=== PATIENT | male | born 1995 | race Caucasian/White ===

== ENCOUNTER 2021-05-16 22:56 | Emergency (ER) | payer MEDICAID ==
[~2021-05-16] VITALS: Ht 165.1 cm; Wt 59.0 kg
[2021-05-16 23:02] VITALS: BP 116/61
== END 2021-05-17 02:09 | disposition left against medical advice (07) ==
LOC: ER 23:42
DX: M79.89 Other specified soft tissue disorders (principal); Z53.21 Procedure and treatment not carried out due to patient leaving prior to being seen by health care provider

== ENCOUNTER 2022-01-21 18:39 | Emergency (ER) | payer MEDICAID ==
[~2022-01-21] VITALS: Ht 160 cm; Wt 62.0 kg
[2022-01-21 18:49] VITALS: BP 117/63
== END 2022-01-21 22:46 | disposition left against medical advice (07) ==
LOC: ER 18:39
DX: Z53.21 Procedure and treatment not carried out due to patient leaving prior to being seen by health care provider (principal)

== ENCOUNTER 2022-05-22 17:02 | Emergency (ER) | payer MEDICAID ==
[~2022-05-22] VITALS: Ht 170.2 cm; Wt 64.0 kg
[2022-05-22] MEDS ORDERED: OXYCODONE HCL/ACETAMINOPHEN 5/325MG TABLET PO ONE (18:15)
[2022-05-22 18:29] LABS: CLARITY URINE CLEAR (CLEAR); COLOR URINE DARK YELLOW (YELLOW); KETONES URINE TRACE (NEGATIVE); LEUKOCYTE ESTERASE URINE 2+ (NEGATIVE); NITRITE URINE NEGATIVE (NEGATIVE); OCCULT BLOOD URINE NEGATIVE (NEGATIVE); PH URINE 7.5 (4.5-8.0); PROTEIN URINE 1+ (NEGATIVE); SPECIFIC GRAVITY URINE 1.029 (1.005-1.030)
[2022-05-22] MEDS ORDERED: MORPHINE SULFATE 4 MG/ML CPJ (NOT FOR IM USE) IV ONE (19:45)
[2022-05-22 20:00] VITALS: BP 122/61
[2022-05-22] MEDS ORDERED: ONDANSETRON 4MG ODT PO ONE (23:00)
[2022-05-23] MEDS ORDERED: T3 PO (00:28)
[2022-05-23] MEDS ORDERED: DOCU-138 MT (00:28)
[2022-05-23] MEDS ORDERED: CEPH500C2 MT (00:35)
== END 2022-05-23 00:41 | disposition home or self-care (01) ==
LOC: ER 17:02
DX: N50.89 Other specified disorders of the male genital organs (principal); N39.0 Urinary tract infection, site not specified
CPT/HCPCS: 76870; 81003; 93976; 96374; 99284; J2270; Q0162

== ENCOUNTER 2022-12-27 13:29 | Emergency (ER) | payer MEDICAID ==
[~2022-12-27] VITALS: Ht 167.6 cm; Wt 59.0 kg
[~2022-12-27 13:29] MED LIST: CEPH500C2 MT; DOCU-138 MT; T3 PO
[2022-12-27 13:50] VITALS: O2SAT 98
[2022-12-27] MEDS ORDERED: LIDO700A15 TP (16:50)
[2022-12-27] MEDS ORDERED: NAP5EC MT (16:50)
[2022-12-27 17:39] VITALS: BP 118/73; PULSE 85; RESP 18; TEMP 97.9
== END 2022-12-27 17:41 | disposition home or self-care (01) ==
LOC: ER 13:29
DX: M94.0 Chondrocostal junction syndrome [Tietze] (principal); Z79.899 Other long term (current) drug therapy
CPT/HCPCS: 71100; 99283

== ENCOUNTER 2024-09-28 23:29 | Emergency (ER) | payer MEDICAID ==
[~2024-09-28] VITALS: Ht 165.1 cm; Wt 64.9 kg
[~2024-09-28 23:29] MED LIST changes: +LIDO-53 TP; +NAPR-1495 MT
[2024-09-28 23:32] VITALS: O2SAT 99
[2024-09-29 00:33] VITALS: BP 124/67; PULSE 96; RESP 16; TEMP 36.7; O2SAT 99
[2024-09-29] MEDS ORDERED: IBUPROFEN 400MG TABLET PO ONE (01:45)
== END 2024-09-29 04:05 | disposition left against medical advice (07) ==
LOC: ER 09-29 00:21
DX: M79.642 Pain in left hand (principal); Z53.21 Procedure and treatment not carried out due to patient leaving prior to being seen by health care provider

== ENCOUNTER 2025-02-04 15:24 | Emergency (ER) | payer MEDICAID ==
[~2025-02-04] VITALS: Ht 165.1 cm; Wt 56.0 kg
[2025-02-04 15:40] VITALS: O2SAT 99
[2025-02-04] MEDS ORDERED: IBUP-1455 MT (19:10)
[2025-02-04 19:35] VITALS: BP 117/70; PULSE 70; RESP 15; TEMP 36.8; O2SAT 100
[2025-02-04] MEDS: IBUPROFEN 600MG TABLET PO ONE (19:37)
== END 2025-02-04 19:59 | disposition home or self-care (01) ==
LOC: ER 15:24
DX: S52.202A Unspecified fracture of shaft of left ulna, initial encounter for closed fracture (principal); S52.92XA Unspecified fracture of left forearm, initial encounter for closed fracture; Z79.1 Long term (current) use of non-steroidal anti-inflammatories (NSAID); V00.148A Other scooter (nonmotorized) accident, initial encounter; Y93.89 Activity, other specified; Y92.89 Other specified places as the place of occurrence of the external cause; Y99.8 Other external cause status
CPT/HCPCS: 99283; 73090; 29125; A6449; A4565

== ENCOUNTER 2025-03-21 10:32 | Emergency (ER) | payer MEDICAID ==
[~2025-03-21] VITALS: Ht 165.1 cm; Wt 63.2 kg
[~2025-03-21 10:32] MED LIST changes: +IBUP-1455 MT
[2025-03-21 10:40] VITALS: O2SAT 98
[2025-03-21] MEDS ORDERED: IBUP-2030 MT (12:02)
[2025-03-21 12:47] VITALS: BP 123/79; PULSE 95; RESP 14; TEMP 36.9; O2SAT 98
== END 2025-03-21 12:48 | disposition home or self-care (01) ==
LOC: ER 10:32
DX: S52.302A Unspecified fracture of shaft of left radius, initial encounter for closed fracture (principal); S52.202A Unspecified fracture of shaft of left ulna, initial encounter for closed fracture; Z79.1 Long term (current) use of non-steroidal anti-inflammatories (NSAID); Z79.899 Other long term (current) drug therapy; X58.XXXA Exposure to other specified factors, initial encounter; Y93.89 Activity, other specified; Y92.89 Other specified places as the place of occurrence of the external cause; Y99.8 Other external cause status
CPT/HCPCS: 29125; 73090; 99283